=== PATIENT | male | born 1980 | race Caucasian/White ===

== ENCOUNTER 2018-11-28 12:26 | Emergency (ER) | payer MEDICAID ==
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
[2018-11-28] MEDS ORDERED: PROPARACAINE HCL OPTH 15ML BTL OPTH ONE ×2 (13:58→14:00)
[2018-11-28] MEDS ORDERED: ORPHENADRINE CITRATE 60MG/2ML VIAL IM ONE (13:58)
[2018-11-28] MEDS ORDERED: KETOROLAC 30 MG/ML VIAL IM ONE (13:58)
== END 2018-11-28 14:55 | disposition home or self-care (01) ==
LOC: ER 12:26
DX: G89.21 Chronic pain due to trauma (principal); M54.5 Low back pain; H10.32 Unspecified acute conjunctivitis, left eye
CPT/HCPCS: 96372; 99283; 99284; J1885; J2360